=== PATIENT | female | born 1945 | race Caucasian/White ===

== ENCOUNTER 2016-08-28 12:50 | Inpatient (IN) | payer MEDICARE, OTHER ==
[~2016-08-28] VITALS: Ht 160 cm; Wt 55.1 kg
[2016-09-01] MEDS ORDERED: CALC1CHW CHEW (14:54)
[2016-09-01] MEDS ORDERED: PRESCAP5 PO (14:54)
[2016-09-01] MEDS ORDERED: CHOL50008 PO (14:54)
[2016-09-02] VITALS (9 sets, daily range): BP systolic 124–183; BP diastolic 52–103; PULSE 67–75; RESP 12–20; TEMP 97.5–97.8; O2SAT 95–99
[2016-09-02] MEDS ORDERED: SODIUM CHLORIDE 0.9% 1000 ML IV SCH (07:30)
[2016-09-02] MEDS ORDERED: ceFAZolin 2 GM PREMIX 50 ML IV SCH (07:30)
[2016-09-02 07:54] LABS: BASOPHIL % 0.5 % (0.0-2.0); EOSINOPHIL # 0.1 TH/MM3 (0-0.4); EOSINOPHIL % 0.6 % (0.0-4.0); HEMATOCRIT 40.8 % (35.0-46.0); LYMPH % 14.4 % (9.0-44.0); LYMPHOCYTE # 1.4 TH/MM3 (1.0-4.8); MEAN CORPUSCULAR HEMOGLOBIN 29.6 PG (27.0-34.0); MEAN CORPUSCULAR HGB CONC 33.6 % (32.0-36.0); MONO % 9.6 % (0.0-8.0); NEUT % 74.9 % (16.0-70.0); PLATELET COUNT 92 TH/MM3 (150-450); RED BLOOD COUNT 4.64 MIL/MM3 (4.00-5.30); RED CELL DISTRIBUTION WIDTH 16.3 % (11.6-17.2); WHITE BLOOD COUNT 9.4 TH/MM3 (4.0-11.0)
[2016-09-02 07:55] LABS: HEMO FLAGS AUTO DIFF
[2016-09-02 08:01] LABS: APTT (PATIENT) 23.1 SEC (24.3-30.1); INTERNATIONAL NORMALIZED RATIO 1.1 RATIO; PROTHROMBIN TIME - PATIENT 11.8 SEC (9.8-11.6)
[2016-09-02 08:10] LABS: BICARBONATE 26.5 MEQ/L (21.0-32.0); POTASSIUM 4.1 MEQ/L (3.5-5.1)
[2016-09-02] MEDS ORDERED: MIDAZOLAM HCL 5 MG/5 ML VIAL ONE ×2 (08:23→12:53)
[2016-09-02] MEDS ORDERED: fentaNYL CITRATE 250 MCG/5 ML AMP ONE ×2 (08:24→16:51)
[2016-09-02 08:31] LABS: PLATELET ESTIMATE SMEAR LOW (NORMAL); PLATELET MORPHOLOGY NORMAL (NORMAL); SCAN/DIFF AUTO DIFF CONFIRMED
[2016-09-02] MEDS ORDERED: GELATIN 12 MM/7 MM FOAM ONE ×2 (09:27→09:56)
[2016-09-02] MEDS ORDERED: IODIXANOL 320 MG/ML 50 ML VIAL (for RAD SPEC) I-ARTERIAL ONE (10:44)
[2016-09-02] MEDS ORDERED: SODIUM CHLOR 0.9% 1000 ML INJ 1,000 ML IV SCH (10:52)
[2016-09-02] MEDS ORDERED: ONDANSETRON HCL 4 MG/2 ML VIAL ONE (10:54)
--- NOTE | 2016-09-02 10:55 | PD.RAD ---
Post Procedure Progress Note Pre Procedure Diagnosis: (1) Splenomegaly Post Procedure Diagnosis: (1) Splenomegaly Procedure Date: Sep 02, 2016 Supervising Radiologist: Tee Staley Proceduralist/Assist: Liana Hastings, RT(R), RT Harjeet(R)() Anesthesia: Conscious Sedation Plan of Activity Patient to Unit: ROPU Patient Condition: Good See PACS Report for procedural detail/treatment Vascular-Arterial Procedure Procedure 1 Procedure Site: Abdominal Procedure(s): Embolization (spleen for preoperative) Access Access Site(s): Right Femoral Artery Closure Site(s): Right manual pressure Tee Staley MD Sep 02, 2016 10:55
[2016-09-02] MEDS ORDERED: ACETAMINOPHEN 325 MG TAB PO PRN (11:00)
[2016-09-02] MEDS ORDERED: oxyCODONE/ACETAMINOPHEN 5 MG/325 MG TAB PO PRN (11:00)
[2016-09-02] MEDS ORDERED: BUPIVACAINE LIPOSOME PF 1.3% 20 ML VIAL ONE (11:05)
[2016-09-02] MEDS ORDERED: MORPHINE SULFATE 4 MG/ML INJ IV ONE (12:00)
[2016-09-02] MEDS ORDERED: SODIUM CHLORID 0.9% 500 ML INJ 500 ML IV ONE (12:00)
[2016-09-02] MEDS ORDERED: PROPOFOL 200 MG/20 ML AMP IV ONE (12:00)
[2016-09-02] MEDS ORDERED: ONDANSETRON HCL 4 MG/2 ML VIAL IV PUSH ONE (12:00)
[2016-09-02] MEDS ORDERED: NORMOSOL R INJ 2,000 ML IV ONE (12:00)
--- NOTE | 2016-09-02 12:18 | RADRPT ---
EXAM DATE/TIME: 09/02/2016 11:36 [facility] COMPARISON: No previous studies available for comparison. INDICATIONS: Chest pain MEDICAL HISTORY: None. SURGICAL HISTORY: None. ENCOUNTER: Initial ACUITY: 1 day PAIN SCORE: 4/10 LOCATION: Chest FINDINGS: The heart and mediastinal structures are normal. The pulmonary vascular pattern is normal. The lung s are clear. Underlying emphysematous changes and fibrotic scarring are likely. CONCLUSION: 1. Chronic underlying emphysematous changes and fibrotic scarring. 2. No acute focal pulmonary infiltrate or pulmonary vascular congestion. Moiz Rojo MD on September 02, 2016 at 12:07 Board Certified Radiologist. This report was verified electronically.
[2016-09-02] MEDS ORDERED: FAMOTIDINE 20 MG/2 ML VIAL ONE (12:53)
[2016-09-02] MEDS ORDERED: DEXAMETHASONE SOD PHOS 4 MG/ML VIAL ONE (12:53)
--- NOTE | 2016-09-02 16:11 | RADRPT ---
EXAM DATE/TIME: 09/02/2016 08:38 [facility] COMPARISON: No previous studies available for comparison. INDICATIONS : Patient with history of splenomagaly in need of angiogram with possible embolization. MEDICAL HISTORY : 1.Splenomegaly 2.Hepatomegaly 3.MDDD 4.T-cell zachariah granular lymphatic leukemia SURGICAL HISTORY : 1.Tubal ligation 2.Appendectomy 3.Tonsillectomy ENCOUNTER: Initial ACUITY: 7-11 months PAIN SCORE: 0/10 FLUORO TIME: 31.2 minutes ACCESS SITE: Right Femoral artery SEDATION TIME: 90 minutes CONTRAST: 1.) 140 cc Visipaque (iodixanol) MEDICATION(S): 1.) 3 mg midazolam (Versed) IV 2.) 150 mcg fentanyl (Sublimaze) IV DEVICE(S): 1.) Splenic artery 12-7mm Gelfoam x 2 PROCEDURE : 1. Ultrasound-guided puncture of the access site. 2. Conscious sedation with continuous EKG and Oximetry monitoring. 3. Angiography of the celiac axis 4. Angiography of the splenic artery 5. Gelfoam embolization of the splenic artery The risks, benefits and alternatives to the procedure were explained and verbal and written consent w as obtained. The site was prepped in sterile fashion. Full sterile technique was used, including ca p, mask, sterile gloves and gown and a large sterile sheet. Hand hygiene and 2% chlorhexidine and/or betadine/alcohol prep was utilized per protocol for cutaneous antisepsis. The skin and subcutaneous tissues were infiltrated with local anesthetic solution. With ultrasound and fluoroscopic guidance the selected artery was punctured and a vascular sheath was placed A Hanson 2 catheter was used to gain access to the celiac axis for angiography demonstrates a long a nd tortuous splenic artery. This catheter was placed into the proximal splenic artery and through thi s a high flow microcatheter was placed into the distal splenic artery. Angiography was performed to c omplete stasis. Repeat angiography demonstrates no high-grade flow in the vessel. The puncture site was closed with manual pressure and hemostasis was obtained. The patient tolerated the procedure well and there were no complications. Conscious sedation was performed with the prescribed dosages and duration as above. EKG and oximetry remained stable throughout the procedure. CONCLUSION: 1. Uncomplicated splenic artery embolization Tee Staley MD on September 02, 2016 at 16:08 Board Certified Radiologist. This report was verified electronically.
--- NOTE | 2016-09-02 16:38 | HHI.PR ---
Immediate Post Op Note Procedure Date: Sep 02, 2016 Pre Op Diagnosis: (1) Splenomegaly Post Op Diagnosis: (1) Splenomegaly Surgeon: Maximus Benitez Cordwainer(s): Dr. Connor MD Procedure: Open Splenectomy Findings: massive splenomegaly Complications: none Specimen(s) removed: spleen Estimated blood loss: 250ml Anesthesia: General, Regional Block Drains: MILVIA IVF Patient to: PACU Patient Condition: Good Maximus Benitez MD Sep 02, 2016 16:38
[2016-09-02] MEDS ORDERED: Post-op Orders (for Pharmacy) MISC XX ONE (16:45)
[2016-09-02] MEDS: PCA - TOTAL MG MORPHINE DELIVERED PER SHIFT SCH ×2 (16:45→22:34)
[2016-09-02] MEDS ORDERED: NALOXONE HCL 0.4 MG/ML AMP IV PRN ×2 (16:45)
[2016-09-02] MEDS ORDERED: diphenhydrAMINE HCL 50 MG/ML VIAL IV PRN (16:45)
[2016-09-02] MEDS ORDERED: BENZOCAINE 20% ORAL SPR 60 ML CAN MT PRN (16:45)
[2016-09-02] MEDS ORDERED: SODIUM CHLORIDE 0.9% FLUSH 5 ML FLUSH IVF PRN (16:45)
--- NOTE | 2016-09-02 17:02 | EKG ---
Date Performed: 09/02/2016 Time Performed: 07:43:44 PTAGE: 71 years EKG: Sinus rhythm WITH OCCASIONAL VENTRICULAR PREMATURE COMPLEXES BORDERLINE ECG NO PREVIOUS TRACING DOCTOR: Tony Navarro Interpretating Date/Time 09/02/2016 16:59:16
[2016-09-02] MEDS ORDERED: DO NOT ADM ANY ANTICOAGULANT DRUGS XX PRN (17:15)
[2016-09-02] MEDS ORDERED: *ONDANSETRON 4 MG VIAL PERIprocedural Use ONLY ONE (17:34)
[2016-09-02] MEDS ORDERED: *morphine SULFATE 8 MG/ML PERIprocedure ONLY ONE (17:34)
[2016-09-02] MEDS: SODIUM CHLOR 0.9% 1000 ML INJ 1,000 ML IV SCH (17:45)
[2016-09-02] MEDS: PANTOPRAZOLE SODIUM 40 MG VIAL IV SCH (17:50)
[2016-09-02] MEDS: ACETAMINOPHEN 1000 MG/100 ML VIAL IV SCH ×2 (17:50→23:49)
[2016-09-02] MEDS: MORPHINE SULFATE 30 MG/30 ML PCA IV SCH (18:01)
[2016-09-02] MEDS: SODIUM CHLORIDE 0.9% FLUSH 5 ML FLUSH IVF SCH (22:27)
[2016-09-03] VITALS (13 sets, daily range): BP systolic 134–160; BP diastolic 60–73; PULSE 72–91; RESP 16–26; TEMP 97.7–98.9; O2SAT 97–98
[2016-09-03] MEDS: ONDANSETRON HCL 4 MG/2 ML VIAL IV PRN ×3 (01:07→20:32)
[2016-09-03] MEDS ORDERED: SODIUM CHLOR 0.9% 1000 ML INJ 1,000 ML IV ONE (02:30)
[2016-09-03] MEDS: SODIUM CHLOR 0.9% 1000 ML INJ 1,000 ML IV SCH ×3 (02:48→23:00)
[2016-09-03 05:53] LABS: POTASSIUM 4.2 MEQ/L (3.5-5.1)
[2016-09-03 06:24] LABS: CALCIUM-PROTEIN CORRECTED 7.4 MG/DL (8.5-10.1)
[2016-09-03] MEDS: ACETAMINOPHEN 1000 MG/100 ML VIAL IV SCH ×2 (06:32→11:31)
[2016-09-03] MEDS: PCA - TOTAL MG MORPHINE DELIVERED PER SHIFT SCH ×3 (06:32→22:00)
[2016-09-03 06:36] LABS: AUTOMATED NEUTROPHIL # 25.2 TH/MM3 (1.8-7.7); BASOPHIL # 0.1 TH/MM3 (0-0.2); BASOPHIL % 0.2 % (0.0-2.0); HEMATOCRIT 34.1 % (35.0-46.0); LYMPH % 4.3 % (9.0-44.0); LYMPHOCYTE # 1.3 TH/MM3 (1.0-4.8); MEAN CELL VOLUME 87.8 FL (80.0-100.0); MONO % 8.6 % (0.0-8.0); NEUT % 86.9 % (16.0-70.0); PLATELET COUNT 81 TH/MM3 (150-450); RED BLOOD COUNT 3.88 MIL/MM3 (4.00-5.30); RED CELL DISTRIBUTION WIDTH 15.6 % (11.6-17.2); WHITE BLOOD COUNT 29.1 TH/MM3 (4.0-11.0)
[2016-09-03 06:41] LABS: HEMO FLAGS AUTO DIFF
[2016-09-03 07:47] LABS: MYELOCYTES 1 % (0-0); NEUTROPHIL # MANUAL DIFF 26.8 TH/MM3 (1.8-7.7); POLYS (SEG NEUTROPHILS) 91 % (16-70); WBC DIFF SAMPLE 100
[2016-09-03 07:48] LABS: SCAN/DIFF FINAL DIFF MANUAL
[2016-09-03 07:49] LABS: KERATOCYTES OCC (NORMAL); PLATELET ESTIMATE SMEAR LOW (NORMAL); PLATELET MORPHOLOGY NORMAL (NORMAL)
[2016-09-03] MEDS ORDERED: CALCIUM GLUCONATE INJ 1 GM in SODIUM CHLORIDE 0.9% INJ 100 ML IV ONE (08:15)
--- NOTE | 2016-09-03 09:28 | MP ---
cc: HALEIGH SCHNEIDER DATE OF SURGERY 09/02/2016 PREOPERATIVE DIAGNOSIS 1. Lymphoma 2. Massive splenomegaly DIAGNOSIS 1. Lymphoma 2. Massive splenomegaly PROCEDURE Open splenectomy ANESTHESIA General and regional tap block. ATTENDING PHYSICIAN Haleigh Schneider MD SHOPPER Mauricio Ryan MD BLOOD LOSS 250 cc COMPLICATIONS None FINDINGS A 20 cm greatest dimension massive splenomegaly occupying the entire left upper quadrant and displacing the left kidney, stomach and all the small bowel and the majority of the colon past the midline on the right. INDICATIONS FOR PROCEDURE The patient is a 71-year-old female who has a history of lymphoma and is followed by Dr. Montes De Oca who developed a massive splenomegaly. The patient was minimally symptomatic, but due to the massive size of the spleen, there is concern for spontaneous rupture or bleeding. The patient was referred for surgical evaluation. After a discussion with the patient about the risks, benefits and alternatives including radiation therapy, she wished to undergo surgical resection of the spleen. PROCEDURE After informed consent was obtained, the patient was taken to the operating room and placed in the supine position and placed under general endotracheal anesthesia. The patient had a tap block placed and Mosher catheter was placed after anesthesia by a nurse. The abdomen was prepped and draped in a sterile fashion. Time-out was performed. The abdomen was entered through a midline incision below the xiphoid to just below the umbilicus with the 10 blade scalpel. Using Bovie electrocautery, we dissect through the subcutaneous tissue and opened the fascia along the entire line of the incision. We were then able to mobilize some of the omentum was stuck down to a lower midline incision. We placed a Bookwalter retractor for better retraction. The patient did undergo preoperative embolization of his spleen and we did have a dark purple appearing spleen consistent with embolization. We then took careful dissection removing some ligaments that were consistent with the short gastric's which were around the level of the midline and took down the capsular attachments as well as some inflammatory adhesions superior on the diaphragm and lateral along the retroperitoneal white line of the abdomen. We continued this dissection until the spleen was relatively mobile and could be moved several centimeters in different directions within the abdomen. This enabled us to gain access to the hilum quite easily. We rotated his spleen outward so the hilum was up into the middle of our surgical field because of our mobilization. We easily identified the hepatic artery that had the coil in it just right proximal to the hilum of the spleen. We identified multiple large branches of the splenic vein. We were able to pretty easily get a large Yani hemostat around the hilum and clamp this off without difficulty. We did note that there was no discernible pancreatic tissue in our clamp. We then placed a second hemostat to prevent some back bleeding. We then divided the medial attachment of the hilum with two white loads on the echelon vascular GI-35 stapler without difficulty. We were able to then continue to fully mobilize the spleen using the LigaSure device, as well as with blunt dissection and with hemostats. The spleen was then delivered and passed off for permanent section. We did have a small staple line bleed from the artery which was oversewn with [id number] interrupted 0-silk sutures with a complete hemostasis. There was minimal blood loss from this and entire blood loss removing the spleen was approximately 200 cc. We irrigated out the left upper quadrant. All suctioning was clear. There were some small retroperitoneal adhesions that were oozing. We did use Bovie electrocautery on these. We saw no evidence of any pancreatic leak and no significant pancreatic tissues in our staple line. We then turned our attention towards closure. We placed a Surgicel snow over the left upper quadrant and retroperitoneum over the raw surface. We placed omentum from the lesser and greater omentum into over this area as well. We then placed a 32 Uzbek round Simone drain through a separate curved incision in the upper quadrant of the abdomen and looped this down the tail of the pancreas at our staple line in the left upper quadrant. This was sutured in place. We then inserted our bowel, laid flat with flat mesentery. There were no significant abdominal adhesions, although there were a few adhesions between the transverse and descending colon. These were not clinically significant. We then closed the midline with #1 looped PDS suture. The skin was closed with aimee. At this point in time, a dressing was applied and the MILVIA drain was placed to bulb suction. A sterile dressing was placed over the midline. At this point, the patient was discontinued from anesthesia and taken to PACU in stable condition. The patient tolerated the procedure well with no apparent complications. All counts were correct and I was present and scrubbed for the entire procedure. MD HOSSEIN Ramirez/GENE /5:37 PM /9:04 AM
[2016-09-03] MEDS: SODIUM CHLORIDE 0.9% FLUSH 5 ML FLUSH IVF SCH ×2 (09:36→20:32)
[2016-09-03 10:42] LABS: MAGNESIUM 1.6 MG/DL (1.5-2.5)
--- NOTE | 2016-09-03 13:17 | HHI.PR ---
Subjective Subjective Notes no new c/o pain ok Objective Vitals/I&O Vital Signs Date Time Temp Pulse Resp B/P Pulse Ox O2 Delivery O2 Flow Rate FiO2 09/03/16 08:49 98 21 09/03/16 06:32 22 09/03/16 06:00 83 09/03/16 04:00 98.0 151/71 09/02/16 21:30 Nasal Cannula 2.00 Labs Laboratory Tests Test 09/02/16 09/02/16 09/03/16 13:38 13:55 05:07 Crossmatch Leukocyte-Reduced Leukocyte-Reduced Red Blood Red Blood Cells Cells Blood Bank Comment White Blood Count 29.1 Red Blood Count 3.88 Hemoglobin 11.3 Hematocrit 34.1 Mean Corpuscular Volume 87.8 Mean Corpuscular Hemoglobin 29.0 Mean Corpuscular Hemoglobin 33.0 Concent Red Cell Distribution Width 15.6 Platelet Count 81 Mean Platelet Volume 10.4 Neutrophils (%) (Auto) 86.9 Lymphocytes (%) (Auto) 4.3 Monocytes (%) (Auto) 8.6 Eosinophils (%) (Auto) 0.0 Basophils (%) (Auto) 0.2 Neutrophils # (Auto) 25.2 Lymphocytes # (Auto) 1.3 Monocytes # (Auto) 2.5 Eosinophils # (Auto) 0.0 Basophils # (Auto) 0.1 CBC Comment AUTO DIFF Differential Total Cells 100 Counted Neutrophils % (Manual) 91 Lymphocytes % 1 Monocytes % 7 Neutrophils # (Manual) 26.8 Myelocytes 1 Differential Comment FINAL DIFF MANUAL Platelet Estimate LOW Platelet Morphology Comment NORMAL Basophilic Stippling MOD Keratocytes OCC Sodium Level 141 Potassium Level 4.2 Chloride Level 110 Carbon Dioxide Level 21.0 Anion Gap 10 Blood Urea Nitrogen 13 Creatinine 0.74 Estimat Glomerular Filtration 77 Rate Random Glucose 162 Calcium Level 6.5 Protein Corrected Calcium 7.4 Phosphorus Level 2.9 Magnesium Level 1.6 Total Protein 5.2 Cardiovascular: Regular Lungs: Clear Abdomen: Non-distended, Post-op tenderness Extremities: No edema, Perfused, SCD's on A/P Assessment and Plan 71yo s/p open splenectomy, stable. - appreciate heme onc help - pain ok - UOP low but ok for now, continue IVF - OOB tomorrow - replete Maximus Bryson MD Sep 03, 2016 13:17
--- NOTE | 2016-09-03 13:25 | MB ---
cc: HALEIGH SCHNEIDER,HARLEY Martinez M.D. DATE OF CONSULTATION: 09/03/2016 DATE OF : [address] Haleigh Schneider CHIEF COMPLAINT Dr. Schneider requests a consultation for Mrs. Bustillo for a T-cell LGL status post splenectomy. HISTORY OF PRESENT ILLNESS Mrs. Bustillo is a pleasant 71-year-old woman with a long history of T-cell LGL diagnosed in 2006. She had no response to Cytoxan and Decadron. She declined additional systemic therapy. She was intent on having a splenectomy from symptoms associated with the hypersplenism. She was having a lot discomfort, decrease in weight and early satiety. She underwent definitive surgery under the care Dr. Schneider on 09/02/2016 with preoperative embolization of the spleen. She tolerated the surgery well with minimal blood loss. She is postoperative and hematology/oncology is consulted for her T-cell LGL. REVIEW OF SYSTEMS She feels a bit nauseous. She has been able to move in the bed. She is trying to exercise her legs. She has known venous insufficiency. He denies any overt bleeding. She is happy that the [employer] won before her surgery. She denies any fevers. No numbness or tingling. PAST MEDICAL HISTORY 1. Venous insufficiency. 2. T-cell LGL. 3. Hypersplenism. PAST SURGICAL HISTORY 1. Left lower extremity debridement. 2. Tubal ligation. 3. Appendectomy. 4. Tonsillectomy. 5. Bone marrow biopsy. ALLERGIES 1. BANANAS. 2. CASHEWS. 3. FISH/SHELLFISH. 4. No known drug allergies. FAMILY HISTORY No family history of cancer. SOCIAL HISTORY She denies any tobacco or illicit drug use. She drinks two glasses of wine per day or every other day. She worked for [employer]. PHYSICAL EXAMINATION VITAL SIGNS: Temperature 98.0, heart rate 82, respiratory rate 22, blood pressure 151/71, saturation 98%. GENERAL: Mrs. Bustillo is a well-developed slender woman in no acute distress. She is awake, alert, oriented. She seems to be in no distress. HEENT: Her pupils are reactive to light and accommodation. Oropharynx is clear. NECK: Supple. LUNGS: Clear anteriorly. CARDIOVASCULAR: Normal rate and rhythm. ABDOMEN: There is a long midline scar. Dressing is in place. There is a drain in the left lower quadrant with serosanguineous fluid. EXTREMITIES: Lower extremities with pneumatic compression stockings in place. There is trace edema of the legs. LABORATORY DATA Significant for white blood cell count of 29,000, predominately neutrophils. Hemoglobin 11.3, platelet count 81,000. Calcium is low at 6.5, magnesium 1.6, BUN and creatinine are normal. ASSESSMENT AND PLAN Mrs. Bustillo is a 71-year-old woman with a long history of T-cell LGL with symptomatic massive splenomegaly. She has had a splenectomy. She is doing well postoperatively. I defer postoperative management to Dr. Schneider. She has no signs of infection. She is advised to continue exercises, moving her lower extremities in bed with the pneumatic compression stockings to decrease the risk of venous thromboembolic event. She is encouraged to use the incentive spirometer. Her abdomen is now significantly reduced in size compared to her pre surgery in light of the splenectomy. She continues to heal. Her calcium will be replaced given its low level. DVT prophylaxis with low-molecular weight heparin will be initiated. We discussed continued follow-up of her CBC. No specific treatment is required for T-cell LGL at present. I anticipate that the leukocytosis will improve and her platelet count will improve as well. Hemoglobin will be monitored to rule out bleeding. Harley Montes De Oca MD RAD/MARISSA /12:47 PM /1:10 PM
[2016-09-03] MEDS ORDERED: MAGNESIUM SULFATE 2 GM/NS 100 ML IV ONE ×2 (14:00)
[2016-09-03] MEDS: ENOXAPARIN SODIUM 40 MG/0.4 ML SYRINGE SQ SCH (16:54)
[2016-09-03] MEDS: PANTOPRAZOLE SODIUM 40 MG VIAL IV SCH (16:54)
--- NOTE | 2016-09-03 23:06 | EKG ---
Date Performed: 09/02/2016 Time Performed: 11:41:36 PTAGE: 71 years EKG: Sinus rhythm MINIMAL ST DEPRESSION BORDERLINE ECG PREVIOUS TRACING : 09/02/2016 07.43 Compared to the previous tracing, minimal ST depression not noted before DOCTOR: Nader Queen Interpretating Date/Time 09/03/2016 23:05:28
[2016-09-04] VITALS (13 sets, daily range): BP systolic 114–163; BP diastolic 62–76; PULSE 74–234; RESP 18–24; TEMP 98.9–99.5; O2SAT 93–98
[2016-09-04 04:44] LABS: AUTOMATED NEUTROPHIL # 31.1 TH/MM3 (1.8-7.7); BASOPHIL # 0.1 TH/MM3 (0-0.2); BASOPHIL % 0.3 % (0.0-2.0); HEMATOCRIT 33.9 % (35.0-46.0); LYMPH % 5.1 % (9.0-44.0); LYMPHOCYTE # 1.9 TH/MM3 (1.0-4.8); MEAN CORPUSCULAR HGB CONC 32.9 % (32.0-36.0); MONO % 11.3 % (0.0-8.0); NEUT % 83.3 % (16.0-70.0); PLATELET COUNT 114 TH/MM3 (150-450); RED BLOOD COUNT 3.85 MIL/MM3 (4.00-5.30); RED CELL DISTRIBUTION WIDTH 16.1 % (11.6-17.2); WHITE BLOOD COUNT 37.4 TH/MM3 (4.0-11.0)
[2016-09-04 04:46] LABS: HEMO FLAGS AUTO DIFF
[2016-09-04 05:10] LABS: BICARBONATE 23.4 MEQ/L (21.0-32.0); CALCIUM-PROTEIN CORRECTED 7.7 MG/DL (8.5-10.1); POTASSIUM 3.8 MEQ/L (3.5-5.1); TOTAL BILIRUBIN ADULT 0.5 MG/DL (0.2-1.0)
[2016-09-04 05:28] LABS: BANDS 6 % (0-6); NEUTROPHIL # MANUAL DIFF 32.5 TH/MM3 (1.8-7.7); POLYS (SEG NEUTROPHILS) 81 % (16-70); WBC DIFF SAMPLE 100
[2016-09-04 05:30] LABS: ACANTHOCYTES OCC (NORMAL); OVALOCYTES 1+ (NORMAL); PLATELET ESTIMATE SMEAR LOW (NORMAL); PLATELET MORPHOLOGY NORMAL (NORMAL); SCAN/DIFF FINAL DIFF MANUAL
[2016-09-04] MEDS: PCA - TOTAL MG MORPHINE DELIVERED PER SHIFT SCH ×3 (06:00→22:00)
[2016-09-04] MEDS: ONDANSETRON HCL 4 MG/2 ML VIAL IV PRN (09:29)
[2016-09-04] MEDS: SODIUM CHLOR 0.9% 1000 ML INJ 1,000 ML IV SCH ×2 (09:30→18:09)
[2016-09-04] MEDS: SODIUM CHLORIDE 0.9% FLUSH 5 ML FLUSH IVF SCH ×2 (09:30→21:00)
--- NOTE | 2016-09-04 10:23 | PD.ONC.PN ---
Subjective Subjective Remarks Afebrile overnight. Patient resting comfortably without complaint. Per nurse she has not been using her pain pump as she has been afraid of getting addicted to the pain medication. Patient up in chair for first time since surgery. Objective Data Date Time Temp Pulse Resp B/P Pulse Ox O2 Delivery O2 Flow Rate FiO2 09/04/16 06:00 24 09/04/16 02:00 99 09/04/16 00:00 98.9 74 24 163/76 95 09/04/16 00:00 88 09/03/16 22:00 90 09/03/16 22:00 24 09/03/16 20:00 98.9 89 24 160/73 97 Arterial Line 09/03/16 20:00 88 09/03/16 18:00 91 09/03/16 16:00 98.1 90 19 146/73 97 09/03/16 16:00 90 09/03/16 14:00 82 09/03/16 12:00 98.0 78 16 136/66 98 09/03/16 12:00 78 Result Diagram: 09/04/16 0327 09/04/16 0327 Laboratory Results Laboratory Tests Test 09/04/16 03:27 White Blood Count 37.4 TH/MM3 Red Blood Count 3.85 MIL/MM3 Hemoglobin 11.1 GM/DL Hematocrit 33.9 % Mean Corpuscular Volume 88.0 FL Mean Corpuscular Hemoglobin 29.0 PG Mean Corpuscular Hemoglobin 32.9 % Concent Red Cell Distribution Width 16.1 % Platelet Count 114 TH/MM3 Mean Platelet Volume 11.3 FL Neutrophils (%) (Auto) 83.3 % Lymphocytes (%) (Auto) 5.1 % Monocytes (%) (Auto) 11.3 % Eosinophils (%) (Auto) 0.0 % Basophils (%) (Auto) 0.3 % Neutrophils # (Auto) 31.1 TH/MM3 Lymphocytes # (Auto) 1.9 TH/MM3 Monocytes # (Auto) 4.2 TH/MM3 Eosinophils # (Auto) 0.0 TH/MM3 Basophils # (Auto) 0.1 TH/MM3 CBC Comment AUTO DIFF Differential Total Cells 100 Counted Neutrophils % (Manual) 81 % Band Neutrophils % 6 % Lymphocytes % 3 % Monocytes % 10 % Neutrophils # (Manual) 32.5 TH/MM3 Differential Comment FINAL DIFF MANUAL Platelet Estimate LOW Platelet Morphology Comment NORMAL Ovalocytes 1+ Acanthocytes OCC Sodium Level 138 MEQ/L Potassium Level 3.8 MEQ/L Chloride Level 106 MEQ/L Carbon Dioxide Level 23.4 MEQ/L Anion Gap 9 MEQ/L Blood Urea Nitrogen 9 MG/DL Creatinine 0.57 MG/DL Estimat Glomerular Filtration 104 ML/MIN Rate Random Glucose 111 MG/DL Calcium Level 7.0 MG/DL Protein Corrected Calcium 7.7 MG/DL Total Bilirubin 0.5 MG/DL Aspartate Amino Transf 24 U/L (AST/SGOT) Alanine Aminotransferase 24 U/L (ALT/SGPT) Alkaline Phosphatase 97 U/L Total Protein 5.7 GM/DL Albumin 2.5 GM/DL Administered Medications Medications (Trade) Dose Ordered Sig/Pipe Route PRN Reason Start Time Stop Time Status Last Admin Dose Admin Sodium Chloride (NS 1000 ml Inj) 1,000 ml @ 100 mls/hr Q10H IV 09/02/16 17:00 09/04/16 09:30 IV Flush (NS Flush) 2 ml BID IVF 09/02/16 21:00 09/04/16 09:30 Ondansetron HCl (Zofran Inj) 4 mg Q6H PRN IV NAUSEA OR VOMITING 09/02/16 16:45 09/04/16 09:29 Pantoprazole Sodium (Protonix Inj) 40 mg Q24H IV 09/02/16 17:00 09/03/16 16:54 Enoxaparin Sodium (Lovenox Inj) 40 mg Q24H SQ 09/03/16 16:00 09/03/16 16:54 Morphine Sulfate (Morphine 1 Mg/ ml CARPET INSTALLER) 30 mg UNSCH IV 09/02/16 16:45 09/02/16 18:01 CARPET INSTALLER Dosage Infused (Pha) 1 Q8HR .XX 09/02/16 16:45 09/04/16 06:00 Objective Remarks GENERAL: Pleasant female, sitting up in chair next to bed in nad. SKIN: Warm and dry. HEAD: Normocephalic. EYES: No injection or drainage. NECK: Supple, trachea midline. CARDIOVASCULAR: Regular rate and rhythm RESPIRATORY: Breath sounds equal bilaterally. No accessory muscle use. GASTROINTESTINAL: Abdomen soft, mild distension, multiple bandages which are clean. MILVIA drain with serosanguineous drainage EXTREMITIES: No cyanosis NEUROLOGICAL: No obvious focal deficit. Awake, alert, and oriented x3. 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 no response to Cytoxan and Decadron. declined additional systemic therapy. --09/02/2016 underwent splenectomy w/ preoperative embolization of the spleen. --No specific treatment is required for T-cell LGL at present. anticipate that the leukocytosis will improve and her platelet count will improve as well. --Hemoglobin will be monitored to rule out bleeding. 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 Plan 1. continue DVT prophylaxis with Lovenox 2. encourage judicious use of pain pump 3. monitor CBC Attending Statement Discussed above, monitor WBC count, reactive, anticipate starting MTX if leukocytosis persist. Defer for now for pt to recover from surgery. Monitor for infection. Lisa Sánchez Sep 04, 2016 10:23 Misty Montes De Oca MD Sep 04, 2016 23:23
--- NOTE | 2016-09-04 14:25 | HHI.PR ---
Subjective Subjective Notes pain ok no acute events Objective Vitals/I&O Vital Signs Date Time Temp Pulse Resp B/P Pulse Ox O2 Delivery O2 Flow Rate FiO2 09/04/16 12:00 99.5 92 18 153/72 93 09/03/16 08:49 21 09/02/16 21:30 Nasal Cannula 2.00 Labs Laboratory Tests Test 09/04/16 03:27 White Blood Count 37.4 Red Blood Count 3.85 Hemoglobin 11.1 Hematocrit 33.9 Mean Corpuscular Volume 88.0 Mean Corpuscular Hemoglobin 29.0 Mean Corpuscular Hemoglobin 32.9 Concent Red Cell Distribution Width 16.1 Platelet Count 114 Mean Platelet Volume 11.3 Neutrophils (%) (Auto) 83.3 Lymphocytes (%) (Auto) 5.1 Monocytes (%) (Auto) 11.3 Eosinophils (%) (Auto) 0.0 Basophils (%) (Auto) 0.3 Neutrophils # (Auto) 31.1 Lymphocytes # (Auto) 1.9 Monocytes # (Auto) 4.2 Eosinophils # (Auto) 0.0 Basophils # (Auto) 0.1 CBC Comment AUTO DIFF Differential Total Cells 100 Counted Neutrophils % (Manual) 81 Band Neutrophils % 6 Lymphocytes % 3 Monocytes % 10 Neutrophils # (Manual) 32.5 Differential Comment FINAL DIFF MANUAL Platelet Estimate LOW Platelet Morphology Comment NORMAL Ovalocytes 1+ Acanthocytes OCC Sodium Level 138 Potassium Level 3.8 Chloride Level 106 Carbon Dioxide Level 23.4 Anion Gap 9 Blood Urea Nitrogen 9 Creatinine 0.57 Estimat Glomerular Filtration 104 Rate Random Glucose 111 Calcium Level 7.0 Protein Corrected Calcium 7.7 Total Bilirubin 0.5 Aspartate Amino Transf 24 (AST/SGOT) Alanine Aminotransferase 24 (ALT/SGPT) Alkaline Phosphatase 97 Total Protein 5.7 Albumin 2.5 Cardiovascular: Regular Lungs: Clear Abdomen: Non-distended, Post-op tenderness Extremities: No edema, Perfused, SCD's on A/P Assessment and Plan 71yo s/p open splenectomy POD#2, stable. - appreciate heme onc help - pain ok - DC ruddy - OSMIN - to floor Maximus Benitez MD Sep 04, 2016 14:25
[2016-09-04] MEDS ORDERED: METOPROLOL TARTRATE 5 MG/5 ML VIAL ONE ×2 (16:54→16:59)
[2016-09-04] MEDS ORDERED: ADENOSINE IV SOLN 3 MG/ML 2 ML VIAL ONE (16:54)
[2016-09-04] MEDS ORDERED: MAGNESIUM SULFATE 1 GM PREMIX 100 ML ONE (17:00)
[2016-09-04] MEDS ORDERED: POTASSIUM CHLOR 20 MEQ PREMIX 100 ML ONE (17:16)
--- NOTE | 2016-09-04 17:34 | PD.CONS ---
[facility] Service Critical Care Medicine Consult Requested By Dr. Durham Reason for Consult Symptomatic Atrial Fibrillation with Rapid ventricular response Primary Care Physician Al Kimball M.D. History of Present Illness 71yF with h/o lymphoma and massive splenomegaly who is now POD 2 s/p open splenectomy. She has been stable in the ICU for close monitoring. She was getting out of bed to use the bedside toilet when she had acute onset dyspnea and palpitations and was found to be in a narrow complex tachycardia. I was immediately called to the bedside and an EKG was ordered which demonstrated atrial fibrillation with rapid ventricular response and a HR of approximately 190. Her blood pressure at that time was 120s/70s, but she stated she felt light-headed and dyspneic, making her moderately symptomatic. I remained at bedside and gave her lopressor 10mg iv in divided doses, which brought her rate down to the 140s from 190s. I then gave her 2gm magnesium sulfate IV over 10 minutes, and replaced her serum K of 3.8 with 20meq KCl iv. Her rate then came down into the 70s and converted to NSR. The patient felt symptomatically better. Review of Systems ROS Limitations: Clinical Condition Constitutional: COMPLAINS OF: Dizziness Respiratory: COMPLAINS OF: Shortness of breath Cardiovascular: COMPLAINS OF: Palpitations, DENIES: Chest pain Gastrointestinal: DENIES: Nausea, Vomiting Past Family Social History Allergies: Coded Allergies: Banana (Verified Allergy, Severe, VOMITING AND DIARRHEA, 09/02/16) Cashew (Verified Allergy, Severe, VOMITING AND DIARRHEA, 09/02/16) White Fish (Verified Allergy, Severe, VOMITING AND DIARRHEA, ALL FISH, 09/02) Shellfish (Verified Allergy, Unknown, VOMITING AND DIARRHEA, 09/02/16) Past Medical History Chronic venous insufficiency Splenomegaly Osteoporosis T-cell CLL Hypercholesterolemia Past Surgical History Tonsillectomy Appendectomy Endoscopy 1994 Left lower extremity debridement and 2016 Tubal ligation 1970 Postoperative day 2 status post open splenectomy Reported Medications Aspirin Tums HCTZ Vitamin D Active Ordered Medications See MAR Family History Reviewed and found to be noncontributory to her acute illness. Social History Never smoked. Occasional drink. Physical Exam Vital Signs Vital Signs Date Time Temp Pulse Resp B/P Pulse Ox O2 Delivery O2 Flow Rate FiO2 09/04/16 16:18 97 21 09/04/16 14:00 98 09/04/16 14:00 21 09/04/16 12:00 99.5 92 18 153/72 93 09/04/16 12:00 92 09/04/16 10:00 88 09/04/16 08:00 99 09/04/16 08:00 98.9 99 20 143/67 94 09/04/16 06:00 24 09/04/16 02:00 99 09/04/16 00:00 98.9 74 24 163/76 95 09/04/16 00:00 88 09/03/16 22:00 90 09/03/16 22:00 24 09/03/16 20:00 98.9 89 24 160/73 97 Arterial Line 09/03/16 20:00 88 09/03/16 18:00 91 Physical Exam On evaluation, this is a 71-year-old female in acute distress due to her palpitations and dyspnea. She is tachycardic with heart rate in the 190s which is irregularly irregular. EKG demonstrates atrial fibrillation with rapid ventricular response. Extremities are cool and clammy. Blood pressure is 120s over 70s. No peripheral edema. No JVD. Neck veins flat. Trachea is midline. Mildly tachypneic. Laboratory Laboratory Tests Test 09/04/16 03:27 White Blood Count 37.4 Red Blood Count 3.85 Hemoglobin 11.1 Hematocrit 33.9 Mean Corpuscular Volume 88.0 Mean Corpuscular Hemoglobin 29.0 Mean Corpuscular Hemoglobin 32.9 Concent Red Cell Distribution Width 16.1 Platelet Count 114 Mean Platelet Volume 11.3 Neutrophils (%) (Auto) 83.3 Lymphocytes (%) (Auto) 5.1 Monocytes (%) (Auto) 11.3 Eosinophils (%) (Auto) 0.0 Basophils (%) (Auto) 0.3 Neutrophils # (Auto) 31.1 Lymphocytes # (Auto) 1.9 Monocytes # (Auto) 4.2 Eosinophils # (Auto) 0.0 Basophils # (Auto) 0.1 CBC Comment AUTO DIFF Differential Total Cells 100 Counted Neutrophils % (Manual) 81 Band Neutrophils % 6 Lymphocytes % 3 Monocytes % 10 Neutrophils # (Manual) 32.5 Differential Comment FINAL DIFF MANUAL Platelet Estimate LOW Platelet Morphology Comment NORMAL Ovalocytes 1+ Acanthocytes OCC Sodium Level 138 Potassium Level 3.8 Chloride Level 106 Carbon Dioxide Level 23.4 Anion Gap 9 Blood Urea Nitrogen 9 Creatinine 0.57 Estimat Glomerular Filtration 104 Rate Random Glucose 111 Calcium Level 7.0 Protein Corrected Calcium 7.7 Total Bilirubin 0.5 Aspartate Amino Transf 24 (AST/SGOT) Alanine Aminotransferase 24 (ALT/SGPT) Alkaline Phosphatase 97 Total Protein 5.7 Albumin 2.5 Result Diagram: 09/04/1632609/04/16326 Assessment and Plan Assessment and Plan Assessment: 71yF POD 2 s/p open splenectomy with post-operative atrial fibrillation with rapid ventricular response. This is most likely secondary to SIRS response from recent surgery and recent splenectomy. She does not clinically appear volume overloaded. She denies chest pain, and I do not think this is acute coronary syndrome. She is back in NSR at this time. Active Problems: Symptomatic Atrial Fibrillation with Rapid Ventricular Response Plan: -- after completion of MgSO4 2gm iv and KCl 20mEq IV, recheck BMP and Mg. -- goal serum K > 4, Mg > 2 -- start metoprolol 12.5mg po q6hr -- lopressor 5mg iv q4h prn for HR > 120. -- continue MIVF at 100cc/hr. -- continue the remainder of the patient's post-operative care per general surgery. -- if the patient remains out of atrial fibrillation in NSR throughout the night , she should be stable for transfer to the floor tomorrow. This patient was critically ill with her symptomatic atrial fibrillation with rapid ventricular response. I have spent in excess of 51 minutes discontinuously in the care and management of this patient during the time in which she was in Afib with RVR and clinically critically ill and unstable. This time is exclusive of procedures, and includes, but is not limited to, evaluation of the patient, review of the medical record, discussions with family , consultants, nursing staff, or respiratory therapy, and documentation in the medical record. Code Status Full Code Coy Leigh MD Sep 04, 2016 17:34
[2016-09-04] MEDS ORDERED: POTASSIUM CHLOR 20 MEQ PREMIX 100 ML IV ONE (18:00)
[2016-09-04] MEDS ORDERED: METOPROLOL TARTRATE 5 MG/5 ML VIAL IV PUSH ONE (18:00)
[2016-09-04] MEDS: PANTOPRAZOLE SODIUM 40 MG VIAL IV SCH (18:06)
[2016-09-04] MEDS: ENOXAPARIN SODIUM 40 MG/0.4 ML SYRINGE SQ SCH (18:06)
[2016-09-04] MEDS: MAGNESIUM SULFAT 1 GM PREMIX 100 ML x2 bags IV SCH ×2 (18:07→18:08)
[2016-09-04] MEDS: METOPROLOL TARTRATE 25 MG TAB PO SCH ×2 (18:15→22:34)
[2016-09-04] MEDS ORDERED: PILL SPLITTER OTHER PRN (18:45)
[2016-09-04 20:42] LABS: POTASSIUM 4.1 MEQ/L (3.5-5.1)
[2016-09-04 21:39] LABS: CALCIUM-PROTEIN CORRECTED 7.3 MG/DL (8.5-10.1)
[2016-09-04] MEDS ORDERED: CALCIUM GLUCONATE INJ 1 GM in SODIUM CHLORIDE 0.9% INJ 100 ML IV ONE (22:00)
[2016-09-05] VITALS (14 sets, daily range): BP systolic 95–114; BP diastolic 56–62; PULSE 66–110; RESP 20–27; TEMP 98.2–99.2; O2SAT 90–98
[2016-09-05] MEDS: PCA - TOTAL MG MORPHINE DELIVERED PER SHIFT SCH ×3 (04:00→22:00)
[2016-09-05] MEDS: SODIUM CHLOR 0.9% 1000 ML INJ 1,000 ML IV SCH ×2 (04:01→15:00)
[2016-09-05] MEDS: METOPROLOL TARTRATE 25 MG TAB PO SCH ×4 (04:01→23:13)
[2016-09-05 07:34] LABS: BICARBONATE 21.7 MEQ/L (21.0-32.0); MAGNESIUM 2.5 MG/DL (1.5-2.5); POTASSIUM 3.8 MEQ/L (3.5-5.1)
[2016-09-05] MEDS ORDERED: POTASSIUM CL 40 MEQ/30 ML LIQ UDC PO ONE (07:45)
[2016-09-05 07:48] LABS: CALCIUM-PROTEIN CORRECTED 7.9 MG/DL (8.5-10.1)
--- NOTE | 2016-09-05 07:54 | HHI.CCPN ---
Subjective Remarks/Hospital Course 71yF with CLL now POD 3 s/p open splenectomy with 1 episode of perioperative atrial fibrillation with RVR which lasted approximately 45 minutes on POD 2. remained in NSR throughout the night. now K 3.8 this AM. still in NSR. pain is well controlled. Objective Vital Signs Date Time Temp Pulse Resp B/P Pulse Ox O2 Delivery O2 Flow Rate FiO2 09/05/16 06:00 83 09/05/16 04:00 99.0 23 107/59 98 09/04/16 19:32 Nasal Cannula 3.00 09/04/16 16:18 21 Intake and Output 09/04/16 09/04/16 09/05/16 08:00 16:00 00:00 Intake Total 1036 ml 1237 ml Output Total 1000 ml 30 ml Balance 36 ml 1207 ml Result Diagram: 09/04/16 0327 09/05/16 0639 Objective Remarks awake, alert. NSR, HR 82 unlabored respirations RASS 0. A/P Assessment and Plan Assessment: 71yF POD 3 s/p open splenectomy with post-operative atrial fibrillation with rapid ventricular response on POD2 likely secondary to SIRS response from surgery. appears more euvolemic. Active Problems: Symptomatic Atrial Fibrillation with Rapid Ventricular Response- resolved. Plan: -- goal serum K > 4, Mg > 2 -- KCl PO 20mEq x 1 now for serum K 3.8 -- continue metoprolol 12.5mg po q6hr -- would recommend outpatient cardiology follow up in 4-6 weeks, though likely this is completely transient atrial fibrillation without long-term consequence. -- would recommend continuing perioperative metoprolol to prevent further episodes of afib, but could consider discontinuing this early as an outpatient. -- continue the remainder of the patient's post-operative care per general surgery. -- stable for transfer to floor. -- Critical care medicine will sign off. Please reconsult if needed. Coy Leigh MD Sep 05, 2016 07:54
[2016-09-05] MEDS ORDERED: METOPROLOL TARTRATE 5 MG/5 ML VIAL ONE ×2 (08:32→08:43)
[2016-09-05] MEDS ORDERED: MAGNESIUM SULFATE 1 GM PREMIX 100 ML ONE (08:42)
[2016-09-05] MEDS: SODIUM CHLORIDE 0.9% FLUSH 5 ML FLUSH IVF SCH ×2 (09:00→20:27)
[2016-09-05] MEDS ORDERED: POTASSIUM CHLOR 20 MEQ PREMIX 100 ML IV ONE (09:04)
[2016-09-05] MEDS ORDERED: POTASSIUM CHLOR 20 MEQ PREMIX 100 ML ONE (09:06)
[2016-09-05] MEDS ORDERED: DILTIAZEM HCL 25 MG/5 ML VIAL ONE (09:06)
[2016-09-05] MEDS ORDERED: DILTIAZEM HCL 25 MG/5 ML VIAL IV ONE (09:07)
[2016-09-05] MEDS ORDERED: METOPROLOL TARTRATE 5 MG/5 ML VIAL IV ONE (09:15)
[2016-09-05] MEDS ORDERED: MAGNESIUM SULFATE 2 GM/NS 100 ML IV ONE ×2 (10:00)
--- NOTE | 2016-09-05 10:48 | PD.ONC.PN ---
Subjective Subjective Remarks Afebrile. Patient went into afib w/ RVR overnight, then resumed a NSR, but went back into Afib w/ RVR early this AM. Critical care is now following. She is still having some abdominal pain. She is anxious as she states she has never had problems with her heart before. Objective Data Date Time Temp Pulse Resp B/P Pulse Ox O2 Delivery O2 Flow Rate FiO2 09/05/16 06:00 83 09/05/16 04:00 99.0 90 23 107/59 98 09/05/16 04:00 90 09/05/16 02:00 91 09/05/16 00:00 78 09/05/16 00:00 99.0 78 22 114/62 98 09/04/16 22:00 78 09/04/16 22:00 80 09/04/16 20:00 78 09/04/16 20:00 99.2 85 20 114/62 97 09/04/16 19:32 98 Nasal Cannula 3.00 09/04/16 18:00 90 09/04/16 16:35 234 09/04/16 16:18 97 21 09/04/16 16:00 99.0 92 20 138/68 95 09/04/16 16:00 92 09/04/16 14:00 98 09/04/16 14:00 21 09/04/16 12:00 99.5 92 18 153/72 93 09/04/16 12:00 92 09/05/16 09/05/16 09/05/16 07:00 15:00 23:00 Intake Total 848 ml Output Total 10 ml Balance 838 ml Result Diagram: 09/04/16 0327 09/05/16 0639 Laboratory Results Laboratory Tests Test 09/04/16 09/05/16 19:56 06:39 Sodium Level 135 MEQ/L 136 MEQ/L Potassium Level 4.1 MEQ/L 3.8 MEQ/L Chloride Level 103 MEQ/L 105 MEQ/L Carbon Dioxide Level 25.0 MEQ/L 21.7 MEQ/L Anion Gap 7 MEQ/L 9 MEQ/L Blood Urea Nitrogen 6 MG/DL 7 MG/DL Creatinine 0.58 MG/DL 0.52 MG/DL Estimat Glomerular Filtration 102 ML/MIN 116 ML/MIN Rate Random Glucose 103 MG/DL 88 MG/DL Calcium Level 6.5 MG/DL 6.9 MG/DL Protein Corrected Calcium 7.3 MG/DL 7.9 MG/DL Magnesium Level 3.0 MG/DL 2.5 MG/DL Total Protein 5.4 GM/DL 5.2 GM/DL Administered Medications Medications (Trade) Dose Ordered Sig/Pipe Route PRN Reason Start Time Stop Time Status Last Admin Dose Admin Sodium Chloride (NS 1000 ml Inj) 1,000 ml @ 100 mls/hr Q10H IV 09/02/16 17:00 09/05/16 04:01 IV Flush (NS Flush) 2 ml BID IVF 09/02/16 21:00 09/05/16 09:00 Ondansetron HCl (Zofran Inj) 4 mg Q6H PRN IV NAUSEA OR VOMITING 09/02/16 16:45 09/04/16 09:29 Pantoprazole Sodium (Protonix Inj) 40 mg Q24H IV 09/02/16 17:00 09/04/16 18:06 Enoxaparin Sodium (Lovenox Inj) 40 mg Q24H SQ 09/03/16 16:00 09/04/16 18:06 Morphine Sulfate (Morphine 1 Mg/ ml LIE DETECTOR OPERATOR) 30 mg UNSCH IV 09/02/16 16:45 09/02/16 18:01 LIE DETECTOR OPERATOR Dosage Infused (Pha) 1 1 Q8HR .XX 09/02/16 16:45 09/05/16 04:00 Magnesium Sulfate 2 gm/Sodium Chloride 104 ml @ 52 mls/hr ONCE ONCE IV 09/05/16 10:00 09/05/16 11:59 09/05/16 10:00 Potassium Chloride (KCl 20 Meq Premix Inj) 100 ml @ 50 mls/hr ONCE ONCE IV 09/05/16 09:04 09/05/16 11:03 09/05/16 09:04 Objective Remarks GENERAL: Pleasant female, sitting up in chair next to bed in [facility]. SKIN: Warm and dry. HEAD: Normocephalic. EYES: No injection or drainage. NECK: Supple, trachea midline. CARDIOVASCULAR: IRR RESPIRATORY: Breath sounds equal bilaterally. No accessory muscle use. GASTROINTESTINAL: Abdomen soft, multiple bandages in place. MILVIA drain in place. mildly tender. EXTREMITIES: No cyanosis NEUROLOGICAL: awake and alert, normal speech. moving all extremities. facial movements symmetric. 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 no response to Cytoxan and Decadron. declined additional systemic therapy. --09/02/2016 underwent splenectomy w/ preoperative embolization of the spleen. --No specific treatment is required for T-cell LGL at present. anticipate that the leukocytosis will improve and her platelet count will improve as well. --Hemoglobin will be monitored to rule out bleeding. 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 Plan 1. continue DVT prophylaxis with Lovenox 2. will defer to critical care for management of Afib w/ RVR 3. WBC remains elevated today--will send peripheral blood for flow cytometry Attending Statement The exam, history, and the medical decision-making described in the above note were completed with the assistance of the mid-level provider. I reviewed and agree with the findings presented. I attest that I had a [id number] encounter with the patient on the same day, and personally performed and documented my assessment and findings in the medical record. Better mood this evening, disappointed with afib RVR when she tried to sit up. Back hurts, gas moving, no bm yet, no nausea or vomiting, good urine output with lasix. Eager to get better and go home. Noted leukocytosis, reactive from pre surgery GCSF support, unable to exclude infection. Predominantly neutrophils. Pt w/ LGL leukemia T cell, this is typically indolent- flow cytometry sent. Platelet count rising. Cont DVT prophylaxis. Emotional support provided. Lisa Sánchez Sep 05, 2016 10:48 Misty Montes De Oca MD Sep 05, 2016 19:19
[2016-09-05 11:02] LABS: AUTOMATED NEUTROPHIL # 31.3 TH/MM3 (1.8-7.7); BASOPHIL % 0.1 % (0.0-2.0); EOSINOPHIL # 0.1 TH/MM3 (0-0.4); EOSINOPHIL % 0.2 % (0.0-4.0); HEMATOCRIT 31.2 % (35.0-46.0); LYMPH % 5.8 % (9.0-44.0); LYMPHOCYTE # 2.2 TH/MM3 (1.0-4.8); MEAN CELL VOLUME 88.3 FL (80.0-100.0); MEAN CORPUSCULAR HEMOGLOBIN 28.8 PG (27.0-34.0); MEAN CORPUSCULAR HGB CONC 32.6 % (32.0-36.0); MONO % 10.7 % (0.0-8.0); NEUT % 83.2 % (16.0-70.0); PLATELET COUNT 178 TH/MM3 (150-450); RED BLOOD COUNT 3.53 MIL/MM3 (4.00-5.30); RED CELL DISTRIBUTION WIDTH 15.6 % (11.6-17.2); WHITE BLOOD COUNT 37.6 TH/MM3 (4.0-11.0)
[2016-09-05 11:04] LABS: HEMO FLAGS AUTO DIFF
[2016-09-05 11:29] LABS: CREATINE KINASE 75 U/L (26-192)
[2016-09-05] MEDS ORDERED: DILTIAZEM 125 MG/NS 100 ML IV SCH ×2 (11:30)
[2016-09-05 12:17] LABS: BANDS 6 % (0-6); CORRECTED NUCLEATED RBC 1 /100 WBC (0-0); NEUTROPHIL # MANUAL DIFF 33.5 TH/MM3 (1.8-7.7); POLYS (SEG NEUTROPHILS) 83 % (16-70); WBC DIFF SAMPLE 100
[2016-09-05 12:18] LABS: PLATELET ESTIMATE SMEAR NORMAL (NORMAL); PLATELET MORPHOLOGY NORMAL (NORMAL); SCAN/DIFF FINAL DIFF MANUAL
[2016-09-05] MEDS ORDERED: DILTIAZEM HCL 25 MG/5 ML VIAL IV PUSH ONE (12:30)
[2016-09-05 13:11] LABS: FREE T4 1.13 NG/DL (0.76-1.46)
[2016-09-05] MEDS ORDERED: FUROSEMIDE 40 MG/4 ML VIAL IV PUSH ONE (15:00)
[2016-09-05] MEDS: ENOXAPARIN SODIUM 40 MG/0.4 ML SYRINGE SQ SCH (15:34)
--- NOTE | 2016-09-05 15:50 | RADRPT ---
EXAM DATE/TIME: 09/05/2016 14:23 [place] COMPARISON: CHEST SINGLE AP, September 02, 2016, 11:36. INDICATIONS : Shortness of breath since Splenectomy. MEDICAL HISTORY : T-cell large granular lymphatic leukemia. Splenomegaly. SURGICAL HISTORY : Appendectomy. Tonsillectomy. Splenectomy. ENCOUNTER: Subsequent ACUITY: 4 - 6 days PAIN SCORE: 10/10 LOCATION: Bilateral back/abdomen. FINDINGS: Small bilateral pleural effusions are noted. Moderate pulmonary edema is noted. The heart is stable. CONCLUSION: 1. Small bilateral pleural effusions. 2. Moderate pulmonary edema. Moiz Rojo MD on September 05, 2016 at 15:44 Board Certified Radiologist. This report was verified electronically.
[2016-09-05] MEDS ORDERED: DILTIAZEM HCL 25 MG/5 ML VIAL IV PRN (16:00)
--- NOTE | 2016-09-05 16:01 | HHI.PR ---
Subjective Subjective Notes pain worse today, TAP block wearing off Afib yesterday, NSR now Objective Vitals/I&O Vital Signs Date Time Temp Pulse Resp B/P Pulse Ox O2 Delivery O2 Flow Rate FiO2 09/05/16 12:49 95 Partial Rebreather 10.00 09/05/16 12:35 22 09/05/16 06:00 83 09/05/16 04:00 99.0 107/59 09/04/16 16:18 21 Labs Laboratory Tests Test 09/04/16 09/05/16 09/05/16 19:56 06:39 10:42 Sodium Level 135 136 Potassium Level 4.1 3.8 Chloride Level 103 105 Carbon Dioxide Level 25.0 21.7 Anion Gap 7 9 Blood Urea Nitrogen 6 7 Creatinine 0.58 0.52 Estimat Glomerular Filtration 102 116 Rate Random Glucose 103 88 Calcium Level 6.5 6.9 Protein Corrected Calcium 7.3 7.9 Magnesium Level 3.0 2.5 Total Protein 5.4 5.2 White Blood Count 37.6 Red Blood Count 3.53 Hemoglobin 10.2 Hematocrit 31.2 Mean Corpuscular Volume 88.3 Mean Corpuscular Hemoglobin 28.8 Mean Corpuscular Hemoglobin 32.6 Concent Red Cell Distribution Width 15.6 Platelet Count 178 Mean Platelet Volume 10.5 Neutrophils (%) (Auto) 83.2 Lymphocytes (%) (Auto) 5.8 Monocytes (%) (Auto) 10.7 Eosinophils (%) (Auto) 0.2 Basophils (%) (Auto) 0.1 Neutrophils # (Auto) 31.3 Lymphocytes # (Auto) 2.2 Monocytes # (Auto) 4.0 Eosinophils # (Auto) 0.1 Basophils # (Auto) 0.0 CBC Comment AUTO DIFF Differential Total Cells 100 Counted Neutrophils % (Manual) 83 Band Neutrophils % 6 Lymphocytes % 4 Monocytes % 7 Neutrophils # (Manual) 33.5 Nucleated Red Blood Cells 1 Differential Comment FINAL DIFF MANUAL Platelet Estimate NORMAL Platelet Morphology Comment NORMAL Polychromasia 2.0 Total Creatine Kinase 75 Troponin I LESS THAN 0.02 Free Thyroxine 1.13 Thyroid Stimulating Hormone 3.600 3rd Gen Cardiovascular: Regular Lungs: Clear Abdomen: Non-distended, Non-tender, Post-op tenderness Extremities: No edema, Perfused Narrative Exam abdomen mildly distended, incision c/d/i A/P Assessment and Plan 71yo s/p open splenectomy POD#3, A.fib overnight - appreciate heme onc help - appreciate CCM help - pain worse with TAP block off, on M[employer] F[employer]ER - OOB/PT - possibly early ileus, keep on liquids Maximus Benitez MD Sep 05, 2016 16:01
[2016-09-05] MEDS: DILTIAZEM HCL 30 MG TAB PO SCH ×2 (16:58→20:27)
[2016-09-05] MEDS: PANTOPRAZOLE SODIUM 40 MG VIAL IV SCH (16:58)
[2016-09-05 22:10] LABS: BICARBONATE 24.5 MEQ/L (21.0-32.0); MAGNESIUM 2.7 MG/DL (1.5-2.5); POTASSIUM 3.7 MEQ/L (3.5-5.1)
[2016-09-05 23:09] LABS: CALCIUM-PROTEIN CORRECTED 7.3 MG/DL (8.5-10.1)
[2016-09-06] VITALS (11 sets, daily range): BP systolic 89–129; BP diastolic 54–61; PULSE 71–88; RESP 18–26; TEMP 97.6–98.6; O2SAT 66–97
[2016-09-06] MEDS: METOPROLOL TARTRATE 25 MG TAB PO SCH ×3 (05:00→17:51)
[2016-09-06 05:26] LABS: AUTOMATED NEUTROPHIL # 20.5 TH/MM3 (1.8-7.7); BASOPHIL % 0.1 % (0.0-2.0); EOSINOPHIL # 0.1 TH/MM3 (0-0.4); EOSINOPHIL % 0.5 % (0.0-4.0); HEMATOCRIT 31.1 % (35.0-46.0); LYMPH % 10.7 % (9.0-44.0); LYMPHOCYTE # 2.8 TH/MM3 (1.0-4.8); MEAN CELL VOLUME 89.6 FL (80.0-100.0); MEAN CORPUSCULAR HEMOGLOBIN 29.1 PG (27.0-34.0); MEAN CORPUSCULAR HGB CONC 32.4 % (32.0-36.0); MONO % 9.1 % (0.0-8.0); NEUT % 79.6 % (16.0-70.0); PLATELET COUNT 252 TH/MM3 (150-450); RED BLOOD COUNT 3.47 MIL/MM3 (4.00-5.30); RED CELL DISTRIBUTION WIDTH 15.5 % (11.6-17.2); WHITE BLOOD COUNT 25.8 TH/MM3 (4.0-11.0)
[2016-09-06 05:33] LABS: HEMO FLAGS AUTO DIFF
[2016-09-06] MEDS: PCA - TOTAL MG MORPHINE DELIVERED PER SHIFT SCH ×3 (06:00→20:56)
[2016-09-06] MEDS ORDERED: FUROSEMIDE 20 MG/2 ML VIAL IV PUSH ONE (08:00)
--- NOTE | 2016-09-06 08:06 | HHI.CCPN ---
Subjective Remarks/Hospital Course 71yF with CLL now POD 3 s/p open splenectomy with 1 episode of perioperative atrial fibrillation with RVR which lasted approximately 45 minutes on POD 2. remained in NSR throughout the night. now K 3.8 this AM. still in NSR. pain is well controlled. 09/06: went back into afib RVR yesterday after we had initially signed off. given metoprolol, diltiazem, started on dilt drip, given lasix 40mg iv x 1 for increasing oxygen requirements. this morning, back in NSR and controlled on PO meds. denes pain complaints. passing flatus. Objective Vital Signs Date Time Temp Pulse Resp B/P Pulse Ox O2 Delivery O2 Flow Rate FiO2 09/06/16 06:00 79 09/06/16 06:00 21 09/06/16 04:00 98.4 116/55 97 09/05/16 21:10 Venturi Mask 6.00 50 Intake and Output 09/05/16 09/05/16 09/06/16 08:00 16:00 00:00 Intake Total 848 ml 2004 ml 545 ml Output Total 10 ml 5 ml 20 ml Balance 838 ml 1999 ml 525 ml Result Diagram: 09/06/16 0448 09/05/162139 Objective Remarks awake, alert. NSR, HR 76 unlabored respirations RASS 0. A/P Assessment and Plan Assessment: 71yF POD 4 s/p open splenectomy with post-operative atrial fibrillation with rapid ventricular response on POD2 likely secondary to SIRS response from surgery. still slightly hypervolemic this morning. Active Problems: Symptomatic Atrial Fibrillation with Rapid Ventricular Response Plan: -- goal serum K > 4, Mg > 2 -- KCl IV 40mEq x 1 now for serum K 3.7 -- continue metoprolol 25mg po q6hr -- continue diltiazem 30mg po q4hr -- would recommend outpatient cardiology follow up in 4-6 weeks, though likely this is completely transient atrial fibrillation without long-term consequence. -- would recommend continuing perioperative metoprolol to prevent further episodes of afib, but could consider discontinuing this early as an outpatient. -- continue the remainder of the patient's post-operative care per general surgery. -- given that she has repeatedly gone into afib with exertion or movement, I would like to see how she does today with breakfast and mobility before signing off and transferring to the floor. --trop negative, TSH/T4 normal. -- if she remains stable throughout the morning, could transfer to floor this afternoon. If she does this, [facility] will sign-off at that point. Coy Leigh MD Sep 06, 2016 08:06
[2016-09-06] MEDS: DILTIAZEM HCL 30 MG TAB PO SCH ×4 (08:20→20:56)
[2016-09-06] MEDS: POTASSIUM CHLOR 20 MEQ PREMIX 100 ML IV SCH ×2 (08:21→10:48)
--- NOTE | 2016-09-06 08:44 | EKG ---
Date Performed: 09/04/2016 Time Performed: 16:49:30 PTAGE: 71 years EKG: Atrial fibrillation with very rapid ventricular response of 200. Nonspecific ST-T change Lo w voltage Abnormal ECG PREVIOUS TRACING : 09/02/2016 11.41 Compared to previous tracing, the rhythm has changed from S inus rhythm to atrial fibrillation. Overall voltage somewhat lower. Clinical correlation recommended. DOCTOR: Iain Jack Interpretating Date/Time 09/06/2016 08:43:56
--- NOTE | 2016-09-06 08:46 | EKG ---
Date Performed: 09/04/2016 Time Performed: 17:18:22 PTAGE: 71 years EKG: Sinus rhythm with frequent and consequtive PACs. Nonspecific ST-T change Generalized low voltage Abnormal ECG PREVIOUS TRACING : 09/04/2016 16.49 Compared to previous tracing, rhythm has changed from atria l fibrillation with uncontrolled ventricular response to sinus rhythm with PACs. DOCTOR: Iain Jack Interpretating Date/Time 09/06/2016 08:46:31
--- NOTE | 2016-09-06 08:48 | HHI.PR ---
Subjective Subjective Notes feels well NSR Objective Vitals/I&O Vital Signs Date Time Temp Pulse Resp B/P Pulse Ox O2 Delivery O2 Flow Rate FiO2 09/06/16 08:34 96 Nasal Cannula 6.00 09/06/16 06:00 79 09/06/16 06:00 21 09/06/16 04:00 98.4 116/55 09/05/16 21:10 50 Labs Laboratory Tests Test 09/05/16 09/05/16 09/06/16 10:42 21:40 04:48 White Blood Count 37.6 25.8 Red Blood Count 3.53 3.47 Hemoglobin 10.2 10.1 Hematocrit 31.2 31.1 Mean Corpuscular Volume 88.3 89.6 Mean Corpuscular Hemoglobin 28.8 29.1 Mean Corpuscular Hemoglobin 32.6 32.4 Concent Red Cell Distribution Width 15.6 15.5 Platelet Count 178 252 Mean Platelet Volume 10.5 11.2 Neutrophils (%) (Auto) 83.2 79.6 Lymphocytes (%) (Auto) 5.8 10.7 Monocytes (%) (Auto) 10.7 9.1 Eosinophils (%) (Auto) 0.2 0.5 Basophils (%) (Auto) 0.1 0.1 Neutrophils # (Auto) 31.3 20.5 Lymphocytes # (Auto) 2.2 2.8 Monocytes # (Auto) 4.0 2.3 Eosinophils # (Auto) 0.1 0.1 Basophils # (Auto) 0.0 0.0 CBC Comment AUTO DIFF AUTO DIFF Differential Total Cells 100 Counted Neutrophils % (Manual) 83 Band Neutrophils % 6 Lymphocytes % 4 Monocytes % 7 Neutrophils # (Manual) 33.5 Nucleated Red Blood Cells 1 Differential Comment FINAL DIFF MANUAL Platelet Estimate NORMAL Platelet Morphology Comment NORMAL Polychromasia 2.0 Total Creatine Kinase 75 Troponin I LESS THAN 0.02 Free Thyroxine 1.13 Thyroid Stimulating Hormone 3.600 3rd Gen Sodium Level 134 Potassium Level 3.7 Chloride Level 102 Carbon Dioxide Level 24.5 Anion Gap 8 Blood Urea Nitrogen 9 Creatinine 0.58 Estimat Glomerular Filtration 102 Rate Random Glucose 98 Calcium Level 6.4 Protein Corrected Calcium 7.3 Magnesium Level 2.7 Total Protein 5.3 Cardiovascular: Regular Lungs: Clear Abdomen: Non-distended, Post-op tenderness Extremities: No edema, Perfused Narrative Exam abdomen mildly distended, incision c/d/i A/P Assessment and Plan 71yo s/p open splenectomy POD#4, stable. - appreciate heme onc help - appreciate CCM help, NSR - pain ok on PATROL CONDUCTOR - OOB/PT to bedside commode - regular diet Maximus Benitez MD Sep 06, 2016 08:48
--- NOTE | 2016-09-06 08:49 | EKG ---
Date Performed: 09/04/2016 Time Performed: 17:21:58 PTAGE: 71 years EKG: Sinus rhythm with PACs Short PA interval Generalized low voltage Nonspecific ST-T change Borderline ECG PREVIOUS TRACING : 09/04/2016 17.18 Compared to previous tracing, no significant change. DOCTOR: Iain Jack Interpretating Date/Time 09/06/2016 08:47:41
[2016-09-06] MEDS: SODIUM CHLORIDE 0.9% FLUSH 5 ML FLUSH IVF SCH ×2 (09:00→20:55)
[2016-09-06 09:40] LABS: BANDS 4 % (0-6); EOSINOPHILS 2 % (0-4); NEUTROPHIL # MANUAL DIFF 22.2 TH/MM3 (1.8-7.7); POLYS (SEG NEUTROPHILS) 82 % (16-70); WBC DIFF SAMPLE 100
[2016-09-06 09:41] LABS: POLYCHROMASIA 2.6 % (0.0-1.9)
[2016-09-06 09:42] LABS: PLATELET ESTIMATE SMEAR NORMAL (NORMAL); PLATELET MORPHOLOGY ENLARGED (NORMAL); SCAN/DIFF FINAL DIFF MANUAL
--- NOTE | 2016-09-06 11:46 | PD.ONC.PN ---
Subjective Subjective Remarks Afebrile overnight. Pt sitting up in chair. at bedside. She states she feels well. No pain. Per RN she has had a few PVC's but no Afib. No bleeding from incisions. Objective Data Date Time Temp Pulse Resp B/P Pulse Ox O2 Delivery O2 Flow Rate FiO2 09/06/16 10:00 78 09/06/16 08:34 96 Nasal Cannula 6.00 09/06/16 08:00 98.3 75 21 105/55 66 09/06/16 08:00 79 09/06/16 07:00 96 Nasal Cannula 6.00 09/06/16 06:00 79 09/06/16 06:00 21 09/06/16 04:00 76 09/06/16 04:00 98.4 76 18 116/55 97 09/06/16 02:00 75 09/06/16 00:00 71 09/06/16 00:00 98.6 71 21 89/54 97 09/05/16 22:00 20 09/05/16 22:00 71 09/05/16 21:10 92 Venturi Mask 6.00 50 09/05/16 21:00 94 Venturi Mask 50 09/05/16 20:00 98.2 76 26 101/57 93 09/05/16 20:00 76 09/05/16 20:00 90 Nasal Cannula 4.00 09/05/16 18:00 74 09/05/16 16:00 99.0 66 21 96/56 98 09/05/16 16:00 66 09/05/16 14:00 70 09/05/16 12:49 95 Partial Rebreather 10.00 09/05/16 12:35 22 09/05/16 12:00 110 09/05/16 12:00 99.2 110 27 95/56 90 09/06/16 09/06/16 09/06/16 07:00 15:00 23:00 Intake Total 610 ml Output Total 415 ml Balance 195 ml Result Diagram: 09/06/16 0448 09/05/16 0320 Laboratory Results Laboratory Tests Test 09/05/16 09/06/16 21:40 04:48 Sodium Level 134 MEQ/L Potassium Level 3.7 MEQ/L Chloride Level 102 MEQ/L Carbon Dioxide Level 24.5 MEQ/L Anion Gap 8 MEQ/L Blood Urea Nitrogen 9 MG/DL Creatinine 0.58 MG/DL Estimat Glomerular Filtration 102 ML/MIN Rate Random Glucose 98 MG/DL Calcium Level 6.4 MG/DL Protein Corrected Calcium 7.3 MG/DL Magnesium Level 2.7 MG/DL Total Protein 5.3 GM/DL White Blood Count 25.8 TH/MM3 Red Blood Count 3.47 MIL/MM3 Hemoglobin 10.1 GM/DL Hematocrit 31.1 % Mean Corpuscular Volume 89.6 FL Mean Corpuscular Hemoglobin 29.1 PG Mean Corpuscular Hemoglobin 32.4 % Concent Red Cell Distribution Width 15.5 % Platelet Count 252 TH/MM3 Mean Platelet Volume 11.2 FL Neutrophils (%) (Auto) 79.6 % Lymphocytes (%) (Auto) 10.7 % Monocytes (%) (Auto) 9.1 % Eosinophils (%) (Auto) 0.5 % Basophils (%) (Auto) 0.1 % Neutrophils # (Auto) 20.5 TH/MM3 Lymphocytes # (Auto) 2.8 TH/MM3 Monocytes # (Auto) 2.3 TH/MM3 Eosinophils # (Auto) 0.1 TH/MM3 Basophils # (Auto) 0.0 TH/MM3 CBC Comment AUTO DIFF Differential Total Cells 100 Counted Neutrophils % (Manual) 82 % Band Neutrophils % 4 % Lymphocytes % 7 % Monocytes % 5 % Eosinophils % 2 % Neutrophils # (Manual) 22.2 TH/MM3 Differential Comment FINAL DIFF MANUAL Platelet Estimate NORMAL Platelet Morphology Comment ENLARGED Polychromasia 2.6 % Administered Medications Medications (Trade) Dose Ordered Sig/Pipe Route PRN Reason Start Time Stop Time Status Last Admin Dose Admin IV Flush (NS Flush) 2 ml BID IVF 09/02/16 21:00 09/05/16 20:27 Ondansetron HCl (Zofran Inj) 4 mg Q6H PRN IV NAUSEA OR VOMITING 09/02/16 16:45 09/04/16 09:29 Pantoprazole Sodium (Protonix Inj) 40 mg Q24H IV 09/02/16 17:00 09/05/16 16:58 Enoxaparin Sodium (Lovenox Inj) 40 mg Q24H SQ 09/03/16 16:00 09/05/16 15:34 Morphine Sulfate (Morphine 1 Mg/ ml DEPARTMENT CHAIR) 30 mg UNSCH IV 09/02/16 16:45 2/7/17 18:01 DEPARTMENT CHAIR Dosage Infused (Pha) 1 Q8HR .XX 09/02/16 16:45 09/06/16 06:00 Metoprolol Tartrate 25 mg 25 mg Q6HR PO 09/05/16 12:00 09/06/16 05:00 Diltiazem HCl/ Sodium Chloride (Cardizem Inj/NS Inj) 125 ml @ 0 mls/hr TITRATE IV 09/05/16 11:30 09/05/16 11:52 Diltiazem HCl 30 mg 30 mg QID PO 09/05/16 18:00 09/06/16 08:20 Potassium Chloride (KCl 20 Meq Premix Inj) 100 ml @ 50 mls/hr Q2H IV 09/06/16 08:00 09/06/16 11:59 09/06/16 10:48 Objective Remarks GENERAL: Pleasant female, sitting up in chair next to bed in no distress. SKIN: Warm and dry. HEAD: Normocephalic. EYES: No injection or drainage. NECK: Supple, trachea midline. CARDIOVASCULAR: +S1/S2. Occasional PVC's on CM, but in SR. RESPIRATORY: Breath sounds equal bilaterally. No accessory muscle use. GASTROINTESTINAL: Abdomen soft, multiple bandages in place. Dry and intact. MILVIA drain in place. EXTREMITIES: No edema. NEUROLOGICAL: Awake, alert. Moving all extremities. Normal speech. 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 Plan Day # 4 post-op: No bleeding. No afib today even with activity. She had a BM this morning. Daily CBC. Leukocytosis improved today. Await flow cytometry results. Continue DVT prophylaxis. Attending Statement The exam, history, and the medical decision-making described in the above note were completed with the assistance of the mid-level provider. I reviewed and agree with the findings presented. I attest that I had a [id number] encounter with the patient on the same day, and personally performed and documented my assessment and findings in the medical record. pathology is very telling. 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 she is recuperating from surgery without complications. Yanelis Nixon Sep 06, 2016 11:46 Iain Melissa MD Sep 06, 2016 17:59
[2016-09-06] MEDS: MORPHINE SULFATE 30 MG/30 ML PCA IV SCH (12:13)
[2016-09-06] MEDS: PANTOPRAZOLE SODIUM 40 MG VIAL IV SCH (15:58)
[2016-09-06] MEDS: ENOXAPARIN SODIUM 40 MG/0.4 ML SYRINGE SQ SCH (15:58)
[2016-09-07] VITALS: BP 128/57; PULSE 88; RESP 18; TEMP 98.4; O2SAT 92
[2016-09-07] MEDS: METOPROLOL TARTRATE 25 MG TAB PO SCH ×3 (00:41→12:35)
[2016-09-07 04:47] VITALS: BP 105/74; PULSE 92; RESP 18; TEMP 97.4; O2SAT 93
[2016-09-07] MEDS: PCA - TOTAL MG MORPHINE DELIVERED PER SHIFT SCH (05:45)
[2016-09-07 07:00] LABS: AUTOMATED NEUTROPHIL # 12.6 TH/MM3 (1.8-7.7); BASOPHIL # 0.1 TH/MM3 (0-0.2); BASOPHIL % 0.3 % (0.0-2.0); EOSINOPHIL # 0.2 TH/MM3 (0-0.4); EOSINOPHIL % 0.9 % (0.0-4.0); HEMATOCRIT 29.7 % (35.0-46.0); HEMO FLAGS DIFF FINAL; LYMPH % 12.4 % (9.0-44.0); LYMPHOCYTE # 2.1 TH/MM3 (1.0-4.8); MEAN CELL VOLUME 88.3 FL (80.0-100.0); MEAN CORPUSCULAR HEMOGLOBIN 29.5 PG (27.0-34.0); MEAN CORPUSCULAR HGB CONC 33.4 % (32.0-36.0); MONO % 12.5 % (0.0-8.0); NEUT % 73.9 % (16.0-70.0); PLATELET COUNT 408 TH/MM3 (150-450); RED BLOOD COUNT 3.37 MIL/MM3 (4.00-5.30); RED CELL DISTRIBUTION WIDTH 15.4 % (11.6-17.2); WHITE BLOOD COUNT 17.1 TH/MM3 (4.0-11.0)
[2016-09-07 08:00] VITALS: BP 122/67; PULSE 101; RESP 22; TEMP 98.5; O2SAT 92
[2016-09-07] MEDS: SODIUM CHLORIDE 0.9% FLUSH 5 ML FLUSH IVF SCH (08:18)
[2016-09-07] MEDS: DILTIAZEM HCL 30 MG TAB PO SCH ×2 (08:18→13:07)
[2016-09-07 12:00] VITALS: BP 120/69; PULSE 86; RESP 18; TEMP 98.4; O2SAT 96
--- NOTE | 2016-09-07 12:23 | HHI.PR ---
Subjective Subjective Notes NSR Objective Vitals/I&O Vital Signs Date Time Temp Pulse Resp B/P Pulse Ox O2 Delivery O2 Flow Rate FiO2 09/07/16 08:15 92 Nasal Cannula 6.00 50 09/07/16 08:00 98.5 101 22 122/67 Labs Laboratory Tests Test 09/07/16 06:10 White Blood Count 17.1 Red Blood Count 3.37 Hemoglobin 9.9 Hematocrit 29.7 Mean Corpuscular Volume 88.3 Mean Corpuscular Hemoglobin 29.5 Mean Corpuscular Hemoglobin 33.4 Concent Red Cell Distribution Width 15.4 Platelet Count 408 Mean Platelet Volume 11.1 Neutrophils (%) (Auto) 73.9 Lymphocytes (%) (Auto) 12.4 Monocytes (%) (Auto) 12.5 Eosinophils (%) (Auto) 0.9 Basophils (%) (Auto) 0.3 Neutrophils # (Auto) 12.6 Lymphocytes # (Auto) 2.1 Monocytes # (Auto) 2.1 Eosinophils # (Auto) 0.2 Basophils # (Auto) 0.1 CBC Comment DIFF FINAL Differential Comment Cardiovascular: Regular Lungs: Clear Abdomen: Non-distended, Non-tender Extremities: No edema, Perfused Narrative Exam abdomen mildly distended, incision c/d/i A/P Assessment and Plan 71yo s/p open splenectomy POD#5, stable. - appreciate CCM help, NSR - pain ok on oral meds - tolerating diet, +BM - DC home Maximus Benitez MD Sep 07, 2016 12:23
[2016-09-07] MEDS ORDERED: DILT31TA PO (12:28)
[2016-09-07] MEDS ORDERED: METO25TA3 PO (12:28)
--- NOTE | 2016-09-26 14:44 | HHI.DS ---
Discharge Summary Admission Date Sep 02, 2016 at 06:50 Discharge Date: Sep 07, 2016 Admitting Diagnosis Brief History 71 year old s/p open splenectomy POD5. PE at Discharge Alert and awake Cardio: RRR Resp: CTAB abdomen mildly distended, incision c/d/i Hospital Course This is a 71 year old s/p open splenectomy POD5. The patient's pain was controlled using oral pain medications. She was able to tolerate a regular diet. She had a bowel movement prior to DC. She will follow up in the office as indicated on the DC information. Pt Condition on Discharge: Good Discharge Disposition: Discharge Home Discharge Instructions DIET: Follow Instructions for: As Tolerated, No Restrictions Activities you can perform: Partial Weight Bearing Activities to Avoid: Lifting/Bending, Weight Bearing, Strenuous Activity Keshia Elizondo Sep 26, 2016 14:44
== END 2016-09-07 14:10 | disposition home or self-care (01) | DRG 821 ==
LOC: HRIP 09-02 06:50 → N03B 09-02 07:34 → HRIP 09-02 07:37 → N03B 09-02 17:18 → N07B 09-06 16:24
PROVIDERS: ADMIT Surgery; ATTEND Surgery
PROC: 04L43DZ Occlusion of Splenic Artery with Intraluminal Device, Percutaneous Approach (ICD-10-PCS; 2016-09-02)
PROC: B4131ZZ Fluoroscopy of Splenic Arteries using Low Osmolar Contrast (ICD-10-PCS; 2016-09-02)
PROC: 3E0T3CZ (ICD-10-PCS; 2016-09-02)
PROC: 07TP0ZZ Resection of Spleen, Open Approach (ICD-10-PCS; principal; 2016-09-02 13:37)
DX: C85.17 Unspecified B-cell lymphoma, spleen (principal); C91.Z0 Other lymphoid leukemia not having achieved remission; R65.10 Systemic inflammatory response syndrome (SIRS) of non-infectious origin without acute organ dysfunction; I48.91 Unspecified atrial fibrillation; D69.6 Thrombocytopenia, unspecified; Z68.1 Body mass index [BMI] 19.9 or less, adult; I97.89 Other postprocedural complications and disorders of the circulatory system, not elsewhere classified; R16.2 Hepatomegaly with splenomegaly, not elsewhere classified; I87.2 Venous insufficiency (chronic) (peripheral); R63.4 Abnormal weight loss; E78.00 Pure hypercholesterolemia, unspecified; M81.0 Age-related osteoporosis without current pathological fracture; I49.3 Ventricular premature depolarization; Z91.013 Allergy to seafood; Z91.018 Allergy to other foods; Z92.21 Personal history of antineoplastic chemotherapy
CPT/HCPCS: 36246; 37243; 71010; 75726; 75774; 76937; 80048; 80053; 81210; 82550; 83735; 84100; 84155; 84439; 84443; 84484; 85007; 85025; 85027; 85610; 85730; 86850; 86900; 86901; 86920; 88184; 88185; 88237; 88264; 88280; 88307; 88377; 93005; 94150; 96372; 99152; 99153; C1769; C1887; C1894; C9113; C9290; J0131; J0153; J0610; J0690; J1100; J1442; J1650; J1940; J2250; J2270; J2405; J3010; J3475; J3480; J7030; J7040; Q9967